=== PATIENT | male | born 1945 | race African-American/Black ===

== ENCOUNTER 2019-05-29 11:16 | Emergency (ER) | payer MEDICARE ==
[~2019-05-29] VITALS: Ht 175.3 cm; Wt 78.0 kg
[2019-05-29] MEDS ORDERED: DEXTROSE 50% WATER 50ML SYRINGE IV ONE (12:00)
[2019-05-29] MEDS ORDERED: SODIUM CHLORIDE 0.9% 1,000 ML IV ONE (12:17)
[2019-05-29 12:43] LABS: HEMATOCRIT. 34.2 % (42.0-52.0); HEMOGLOBIN. 11.1 g/dL (14.0-18.0); MEAN CORPUSCULAR VOLUME 89.2 fL (80.0-94.0); MEAN PLATELET VOLUME 9.6 fl (7.4-10.4); PLATELET 275 x1000/uL (130-400); RED BLOOD CELL COUNT 3.83 mill/uL (4.7-6.1); RED CELL DISTRIBUTION WIDTH 15.7 % (11.6-14.6)
[2019-05-29 12:46] LABS: CHLORIDE 101 mEq/L (98-107)
[2019-05-29 13:46] LABS: PLATELET ESTIMATE NORMAL
[2019-05-29] MEDS ORDERED: HYDRALAZINE HCL 100MG TABLET PO ONE (15:00)
[2019-05-29 15:30] VITALS: BP 155/84
== END 2019-05-29 15:32 | disposition home or self-care (01) ==
LOC: ER 11:16
DX: E11.649 Type 2 diabetes mellitus with hypoglycemia without coma (principal); E11.22 Type 2 diabetes mellitus with diabetic chronic kidney disease; I12.0 Hypertensive chronic kidney disease with stage 5 chronic kidney disease or end stage renal disease; N18.6 End stage renal disease; Z86.73 Personal history of transient ischemic attack (TIA), and cerebral infarction without residual deficits; Z99.2 Dependence on renal dialysis; Z79.4 Long term (current) use of insulin
CPT/HCPCS: 36415; 80053; 82962; 85025; 93005; 96374; 99284; J7030